=== PATIENT | male | born 1930 | race Caucasian/White ===

== ENCOUNTER → 2016-10-30 | Outpatient (CLI) | payer MEDICARE ==
--- NOTE | ~2016-10-30 | US77 ---
[facility] A Service of [facility] & [facility] RADIOLOGY TEXT RESULTS PATIENT: HA WHELAN LOCATION: [facility] : 34 UNIT #: [id number] AGE: [address]: Marimar Dahl APRN SEX: M ORDER DR: [id number] [address] [address] [id number] O MR#: [id number] Acc #: [id number] NAME: HA WHELAN : 1930 SEX: M STUDY DATE/TIME: 10/30/2016 13:36 UNIT: [facility] ROOM: STUDY DESCRIPTION: US Kidney Bilateral Complete Attending Physician: Marimar Dahl A.P.R.N. Referring Physician: Marimar Dahl A.P.R.N. Ordering Physician: Marimar Dahl A.P.R.N. Primary Care Physician: Marimar Dahl A.P.R.N. MEDICAL IMAGING REPORT This report is preliminary unless electronic signature is present. EXAM Bilateral renal ultrasound. HISTORY Elevated creatinine. Creatinine is 1.7. FINDINGS Ultrasound examination of both kidneys demonstrates no renal mass or hydronephrosis. Limited visualization both kidneys due to patient body habitus. Hftt-bv-gdedmoyh generalized bilateral renal parenchymal atrophy. Survey of the urinary bladder is unremarkable. IMPRESSION 1. No renal mass or hydronephrosis is identified. 2. Vqot-rp-sijdiunn generalized bilateral renal parenchymal atrophy. 3. Survey of the urinary bladder is unremarkable. 1. 1. Dictated by... Robert Castro M.D. THIS IS AN ELECTRONICALLY VERIFIED REPORT Robert Castro M.D. at 10/31/2016 2:35 PM DFL/scotty TD: 10/31/2016 06:21 JOB #: [id number] MEDICAL IMAGING REPORT Page 1 of 1
== END | disposition home or self-care (01) ==
LOC: SGUS 13:28
DX: R79.89 Other specified abnormal findings of blood chemistry (principal); N26.1 Atrophy of kidney (terminal)
CPT/HCPCS: 76775